=== PATIENT | male | born 1955 | race Caucasian/White ===

== ENCOUNTER → 2018-04-13 | Day surgery (SDC) | payer OTHER ==
[~2018-04-13] MED LIST: ALBUTEROL SULFATE 2.5 MG/3 ML NEBU. NEB PRN; AMOX500C PO; ATROPINE 0.5 MG/5 ML DISP.SYRIN. IV PRN; ATROPINE SULFATE 1 MG VIAL ONE; CHLO15MO2 PO; DEXAMETHASONE SOD PHOS 10 MG/ML VIAL ONE; GLYCOPYRROLATE 1 MG/5 ML VIAL. ONE; HYDR-3165 PO; IV RINGERS SOLUTION,LACTATED 1,000 ML IV SCH; LIDOCAINE 2% PF Vial for OR 5 ML VIAL. ONE; LIDOCAINE 2% TOPICAL JELLY 5GM TUBE. TP ONE; LOSA100T14 PO; MIDAZOLAM HCL PF 2 MG/2 ML VIAL. ONE; NALOXONE 0.4 MG/ML VIAL. IV PRN; NEOSTIGMINE 10 MG/10 ML VIAL. ONE; ONDA4TAB7 PO; ONDANSETRON PF 4 MG/2 ML VIAL. IV PRN; ONDANSETRON PF 4 MG/2 ML VIAL. ONE; PHENYLEPHRINE 0.5% NASAL SPRAY 15ML BOTTLE. NS ONE; PROCHLORPERAZINE 10 MG/2 ML VIAL. IV PRN; PROPOFOL 20 ML IV ONE; ROCURONIUM 50 MG/5 ML VIAL. ONE; SUCCINYLCHOLINE 200 MG/10 ML VIAL. ONE; ceFAZolin 2GM PREMIX 2 GM/50 ML BAG IV ONE; diphenhydrAMINE 50 MG/ML VIAL IV PRN; oxyCODONE/APAP 5/325 1 TAB TABLET PO PRN
[2018-04-13 10:50] VITALS: BP 143/86
--- NOTE | 2018-04-13 11:46 | PDOC4 ---
BRIEF OPERATIVE NOTE Brief Operative Note: Date: Apr 13, 2018 Pre-Op Diagnosis: caries HTN MARIAM Post-Op Diagnosis: same Procedure: extraction of 2,3,4,5,6,7,8,9,10,11,12,13,15,16,17,18,20,21,22,23,24,25,26,27,28 ,29,31,32 4 quad alveoloplasty Surgeon: meg Paraprofessional Aide: laura Anesthesiologist: tim Blood Loss: 20 Urine Output: no oliver Specimans: teeth disposed of in OR Findings: see dictation Complications: none Operative Note: extraction of 2,3,4,5,6,7,8,9,10,11,12,13,15,16,17,18,20,21,22,23,24,25,26,27,28 ,29,31,32 4 quad alveoloplasty see dictation AYAZ ROMANO DMD Apr 13, 2018 11:46
--- NOTE | 2018-04-13 12:09 | OP ---
DATE OF SURGERY: 04/13/2018 OPERATING SERVICE: track production engineer. ATTENDING PHYSICIAN: Gabe Romano MD PREOPERATIVE DIAGNOSES: Hypertension, obstructive sleep apnea, glaucoma, tobacco use, nonrestorable dentition with failing nonrestorable dentition. POSTOPERATIVE DIAGNOSES: Hypertension, obstructive sleep apnea, glaucoma, tobacco use, nonrestorable dentition with failing nonrestorable dentition. PROCEDURES PERFORMED: Full mouth extraction with alveoloplasty, extraction of teeth numbers 2, 3, 4, 5, 6, 7, 8, 9, 10, 11, 12, 13, 15, 16, 17, 18, 20, 21, 22, 23, 24, 25, 26, 27, 28, 29, 31 and 32. Alveoloplasty, upper right, upper left, lower right, lower left quadrants. BRIEF HISTORY: The patient was referred to my clinic for surgical care and management of extraction of all remaining teeth, alveoloplasty and preparation for denture fabrication. The patient did not have any dentures preoperatively planned. Considering the patient's comorbidities and potential for difficulty with surgery in our clinic, the care was escalated to the surgery center. A consent and permit was obtained for the procedure and the scheduled surgery was planned. The patient was evaluated by his primary care physician and found to have been optimized for procedure. DRAINS PLACED: None. SPECIMEN SENT: None. Teeth were disposed in the OR. ESTIMATED BLOOD LOSS: Less than 20 mL. COMPLICATIONS: None noted at the time of surgery. OPERATIVE DESCRIPTION: After the history and physical was updated in the preoperative holding area, the patient was transported by the Anesthesia Service to the operating suite, placed in the supine position. General anesthesia was induced with nasal intubation. This was secured in the right naris. Care was taken to secure with a turban head wrap to alleviate pressure from the ala to avoid alar necrosis. The timeout was initiated. All perioperative staff was in agreeance. The moistened throat pack was then placed and approximately 8.5 mL of 2% lidocaine with 1:100,000 epinephrine was administered to the proposed surgical areas. An additional 8.5 mL of Marcaine was administered to the proposed surgical areas, 1:200,000 epinephrine on the 0.5% Marcaine. An additional 5.1 mL of 0.5% Marcaine, 1:200,000 epinephrine were administered at the culmination of the procedure. The bite block was placed on the right side. A 15 blade incision was made in the upper right and lower right sites. Full thickness mucoperiosteal flaps were reflected buccally. All teeth were luxated, elevated and extracted with rongeurs, forceps and elevators. A root tip pick and surgical curettes were employed to remove the root tips and periapical pathology. Alveoloplasty was performed with rongeurs. All bony undercuts were removed and smoothed with a bone file. The sites were then lavaged and curetted with copious normal sterile saline irrigation and suctioned and Gelfoam was placed in the extraction sites and over closed with 3-0 chromic gut suture in a running locked fashion. Both bite blocks were placed in opposite side and proceeded in the similar fashion with 15 blade full thickness mucoperiosteal flaps. All teeth were removed with forceps and hand instruments. Bone file curettage and root tip picks were needed. Again periapical pathology was all removed and sites were checked for hemostasis lavage and closed with 3-0 chromic gut sutures in a running locked fashion. The teeth that were removed were numbered 1, 2, 4, 5, 6, 7, 8, 9, 8, 9, 10, 11, 12, 14, 15, 17, 18, 20, 21, 22, 23, 24, 25, 26, 27, 28, 29, 31 and 32. Alveoloplasty was performed in quadrants, upper right, upper left, lower right, lower left. All bony undercuts were removed and the sites were found to be smooth to digital manipulation. Oral cavity was lavaged and suctioned. Moistened throat pack was then removed. An OG was passed. The stomach was decompressed and then the patient was turned to the care of anesthesia where he was awakened and extubated and transported to the PACU in stable condition. GABE ROMANO DMD DR: Raymond JOB#: [id number] / [id number]
== END | disposition home or self-care (01) ==
LOC: SURG 07:05
PROVIDERS: ATTEND Dentist Oral and Maxillofacial Surgery
DX: K00.7 Teething syndrome (principal); I10 Essential (primary) hypertension; G47.33 Obstructive sleep apnea (adult) (pediatric); Z72.0 Tobacco use; H40.9 Unspecified glaucoma; Z88.0 Allergy status to penicillin
CPT/HCPCS: 41874; 41899; J0330; J0461; J0696; J1100; J2405; J2704; J2710; J3010; J3490; J2250; J2001